=== PATIENT | female | born 1940 | race Caucasian/White ===

== ENCOUNTER → 2018-01-30 11:37 | Outpatient (CLI) | payer MEDICARE, SELFPAY ==
--- NOTE | 2018-01-30 | DI.MG.S_ITS ---
BILATERAL DIGITAL SCREENING MAMMOGRAM 3D/2D WITH CAD: 01/30/2018 Comparison is made to exams dated: 05/27/2011 mammogram, 04/24/2010 mammogram, and 04/13/2009 mammogram - [facility]. There are scattered fibroglandular elements in both breasts. Current study was also evaluated with a Computer Aided Detection (CAD) system. No significant masses, calcifications, or other findings are seen in either breast. There has been no significant interval change. IMPRESSION: NEGATIVE There is no mammographic evidence of malignancy. A 1 year screening mammogram is recommended. This exam was interpreted at Station ID: [id number]. NOTE: For mammograms, a report in lay terms will be sent to the patient. Approximately 15% of breast malignancies will not be visualized mammographically. In the management of a palpable breast mass, a negative mammogram must not discourage biopsy of a clinically suspicious lesion. Electronically Signed By: Aissatou read/abdullahi:02/01/2018 08:12:20 letter sent: Normal Exam ACR BI-RADS Category 1: Negative 3341F
== END ==
PROVIDERS: PCP Internal Medicine; Visit Provider Physician Assistant Medical
DX: Z12.31 Encounter for screening mammogram for malignant neoplasm of breast (principal)
CPT/HCPCS: 77063; 77067

== ENCOUNTER → 2019-02-02 12:11 | Outpatient (CLI) | payer MEDICARE, SELFPAY ==
--- NOTE | 2019-02-02 | DI.MG.S_ITS ---
BILATERAL DIGITAL SCREENING MAMMOGRAM 3D/2D WITH CAD: 02/02/2019 CLINICAL: Routine screening. Comparison is made to exams dated: 01/30/2018 mammogram - [facility], 05/27/2011 mammogram, and 04/24/2010 mammogram - [facility]. There are scattered fibroglandular elements in both breasts. Current study was also evaluated with a Computer Aided Detection (CAD) system. No significant masses, calcifications, or other findings are seen in either breast. There has been no significant interval change. IMPRESSION: NEGATIVE There is no mammographic evidence of malignancy. A 1 year screening mammogram is recommended. This exam was interpreted at Station ID: [id number]. NOTE: For mammograms, a report in lay terms will be sent to the patient. Approximately 15% of breast malignancies will not be visualized mammographically. In the management of a palpable breast mass, a negative mammogram must not discourage biopsy of a clinically suspicious lesion. Electronically Signed By: Joao chaves/abdullahi:02/04/2019 07:23:47 letter sent: Normal Exam ACR BI-RADS Category 1: Negative 3341F
== END ==
PROVIDERS: PCP Physician Assistant; Visit Provider Physician Assistant
DX: Z12.31 Encounter for screening mammogram for malignant neoplasm of breast (principal)
CPT/HCPCS: 77063; 77067

== ENCOUNTER → 2019-04-17 10:16 | Outpatient (CLI) | payer MEDICARE, OTHER, SELFPAY | PROVIDERS: PCP Student in an Organized Health Care Education/Training Program; Visit Provider Physician Assistant | DX: M85.852 Other specified disorders of bone density and structure, left thigh (principal); Z78.0 Asymptomatic menopausal state; Z90.722 Acquired absence of ovaries, bilateral; E28.39 Other primary ovarian failure | CPT/HCPCS: 77080 ==

== ENCOUNTER → 2019-04-19 11:30 | Outpatient (CLI) | payer MEDICARE, OTHER, SELFPAY ==
--- NOTE | 2019-04-19 11:33 | DI.RAD.S_ITS ---
PROCEDURE: XR CERVICAL SPINE 2V OR 3V INDICATIONS: Neck pain TECHNIQUE: 3 view(s) of the cervical spine were acquired. COMPARISON: None. FINDINGS: Bones: No fractures or dislocations to the T1 level. The lateral masses of C1 appear intact on the odontoid view. There is asymmetric left-sided facet arthropathy in the upper cervical spine. Moderate degenerative disc height loss uncal vertebral joint hypertrophy at C5-6 level where trace retrolisthesis is present. Grade 1 anterolisthesis C4 on 5 with only mild disc height loss. Moderate disc height loss at C67. No suspicious bony lesions. Soft tissues: No prevertebral soft tissue swelling. IMPRESSION: Multilevel degenerative disc, endplates, and facet joint changes. This combination may cause radiculopathy secondary to bony foraminal narrowing, particularly at the C5-6 level. Consider MRI. Dictated by: Emy Ferris M.D. on 04/19/2019 at 15:35 Approved by: Emy Ferris M.D. on 04/19/2019 at 15:37
--- NOTE | 2019-04-19 11:33 | DI.RAD.S_ITS ---
PROCEDURE: XR LUMBAR SPINE MIN 4V INDICATIONS: Low back pain; radiculopathy left leg TECHNIQUE: 5 views of the lumbar spine were acquired. COMPARISON: None. FINDINGS: Bones: 5 nonrib-bearing vertebrae are present. Slight thoracolumbar scoliosis with the leftward apex at the L1 level and a rightward apex at L4. Trace retrolisthesis of L1 on 2. There are severe degenerative endplate and disc changes with severe disc height loss at L2-3, L3-4 and asymmetric disc height loss at L4-5.. No vertebral body compression fractures. No suspicious bony lesions. Facet hypertrophy is present at L4-5 and L5-S1. Soft tissues: Overlying bowel gas pattern is normal. No suspicious soft tissue calcifications. Atherosclerotic calcification of the abdominal aorta. Oblique images: No pars defects. IMPRESSION: 1. Minor thoracolumbar reverse S. scoliosis. 2. Multilevel severe disc and endplate degeneration, particularly in the mid lumbar spine. 3. Facet hypertrophy in the lower lumbar spine. Dictated by: Emy Ferris M.D. on 04/19/2019 at 15:32 Approved by: Emy Ferris M.D. on 04/19/2019 at 15:35
== END ==
PROVIDERS: PCP Student in an Organized Health Care Education/Training Program; Visit Provider Physician Assistant
DX: M54.5 Low back pain (principal); M51.16 Intervertebral disc disorders with radiculopathy, lumbar region; M50.322 Other cervical disc degeneration at C5-C6 level; M47.812 Spondylosis without myelopathy or radiculopathy, cervical region; R29.898 Other symptoms and signs involving the musculoskeletal system; I70.0 Atherosclerosis of aorta
CPT/HCPCS: 72040; 72110

== ENCOUNTER → 2019-04-29 12:35 | Outpatient (CLI) | payer MEDICARE, OTHER, SELFPAY ==
--- NOTE | 2019-04-29 12:37 | DI.MRI.S_ITS ---
PROCEDURE: MR LUMBAR SPINE WO CON INDICATIONS: Weakness of left leg w/neck LBP TECHNIQUE: Noncontrast sagittal T1 spin echo and T2 fast echo, sagittal STIR, axial T1 and T2 fast spin echo through the lumbar spine. In cases with scoliosis, additional coronal T2 fast spin echo may be performed. COMPARISON: [facility], CR, XR LUMBAR SPINE MIN 4V, 04/19/2019, 11:29. FINDINGS: Image quality: Excellent. Alignment and Curvature: There is normal bony alignment. Mild convex right curvature of the lumbar spine. Bone Marrow: Reactive endplate change is noted adjacent to the L1-L2, L2-L3, L3-L4, L4-L5 and L5-S1 discs. Benign, intraosseous hemangiomas noted in the L4 vertebral body. No acute vertebral body compression fractures. Spinal Cord: Conus medullaris terminates at the L1-2 disc level. Visualized cord demonstrates normal signal and size. Paraspinous Soft Tissues: No paravertebral masses. L1-L2: Loss of disc signal and slight loss of disc height. Moderate, diffuse disc bulge. Mild narrowing of the central canal. No neural foraminal narrowing. No neural compression. L2-L3: Loss of disc signal and mild loss of disc height. Moderate, diffuse disc bulge. Mild to moderate narrowing of the central canal. Mild bilateral facet hypertrophy. Moderate bilateral neural foraminal narrowing. No neural compression. L3-L4: Loss of disc signal and height. Moderate, diffuse disc bulge. [id number] bilateral facet hypertrophy. Moderate narrowing of the central canal. Moderate right and vcgojrvb-gt-ggjfvh left neural foraminal narrowing with slight compression of the exiting left L3 nerve root. L4-L5: Loss of disc signal and height. Mild, diffuse disc bulge. Mild right and moderate left facet hypertrophy. No central stenosis. Mild right and moderate left neural foraminal narrowing. No neural compression. L5-S1: Loss of disc signal. Mild diffuse disc bulge. Mild bilateral facet hypertrophy. No central stenosis. Moderate to severe left neural foraminal narrowing with slight compression of the exiting left L5 nerve root. IMPRESSION: 1. Multilevel degenerative disc disease. 2. Multilevel facet arthropathy. 3. Moderate L3-L4 central canal narrowing. Mild to moderate L2-L3 central canal narrowing. Mild L1-L2 central canal narrowing. 4. Moderate right and vsmzcdow-fj-ldwwrn left L3-L4 neural foraminal narrowing. Moderate to severe left L5-S1 neural foraminal narrowing. Moderate bilateral L2-L3 neural foraminal narrowing. Mild right and moderate left L4-L5 neural foraminal narrowing. 5. Slight compression of the exiting left L3 nerve root and the exiting left L5 nerve root secondary to neural foraminal narrowing. Dictated by: Caro Rodríguez MD, PhD on 04/29/2019 at 16:19 Approved by: Caro Rodríguez MD, PhD on 04/29/2019 at 16:25
--- NOTE | 2019-04-29 12:37 | DI.MRI.S_ITS ---
PROCEDURE: MR CERVICAL SPINE WO CON INDICATIONS: Weakness of left leg w/neck LBP TECHNIQUE: Noncontrast sagittal T1 spin echo and T2 fast spin echo, sagittal STIR, foraminal oblique sagittal T2 fast spin echo, and axial gradient echo or T2 fast spin echo through the cervical spine. COMPARISON: [facility], CR, XR CERVICAL SPINE 2V OR 3V, 04/19/2019, 11:29. [facility], MR, C-SPINE WITHOUT CONTRAST, 04/20/2015, 14:13. FINDINGS: Image quality: Degraded by patient motion artifact. Alignment and Curvature: There is normal bony alignment. There is straightening of normal cervical spine curvature. Bone Marrow: Mild reactive endplate changes noted adjacent to the C4-C5, C5-C6 and C6-C7 discs. Spinal Cord: Visualized spinal cord has normal size and signal. No cerebellar tonsillar herniation. Paraspinous Soft Tissues: No paravertebral masses. Prevertebral soft tissues are normal in thickness. C2-C3: Loss of disc signal. No central stenosis. Mild bilateral facet hypertrophy. Mild left neural foraminal narrowing. No neural compression C3-C4: Loss of disc signal. No central stenosis. Mild right and moderate left facet hypertrophy. Moderate left uncovertebral joint hypertrophy. Severe left neural foraminal narrowing and compression of the exiting left C4 nerve root. C4-C5: Loss of disc signal and slight loss of disc height. No central stenosis. Mild, diffuse disc bulge. Mild right and severe left facet hypertrophy. Mild right and moderate left uncovertebral joint hypertrophy. Mild right and severe left neural foraminal narrowing with compression of the exiting left C5 nerve root. C5-C6: Loss of disc signal and height. Moderate, diffuse disc bulge. Moderate to severe narrowing of the central canal. Moderate bilateral facet hypertrophy. Moderate bilateral uncovertebral joint hypertrophy. Severe bilateral neural foraminal narrowing with compression of the exiting C6 nerve roots. C6-C7: Loss of disc signal and mild loss of disc height. Mild, diffuse disc bulge. Mild narrowing of the central canal. Mild bilateral facet hypertrophy. Moderate bilateral uncovertebral joint hypertrophy. Severe bilateral neural foraminal narrowing with compression of the exiting C7 nerve roots. C7-T1: Loss of disc signal. No central stenosis. No neural foraminal narrowing. No neural compression. IMPRESSION: 1. Multilevel degenerative disc disease. 2. Multilevel facet and uncovertebral arthropathy. 3. Moderate to severe C5-C6 central canal narrowing. Mild C6-C7 central canal narrowing. 4. Severe bilateral C5-C6 and C6-C7 neural foraminal narrowing. Mild right and severe left C4-C5 neuroforaminal narrowing. Severe left C3-C4 neural foraminal narrowing. 5. Compression of the exiting left C4 nerve root, exiting left C5 nerve root, exiting bilateral C6 nerve roots and exiting bilateral C7 nerve roots secondary to neural foraminal narrowing. 6. Image quality degraded by patient motion artifact. Dictated by: Caro Rodríguez MD, PhD on 04/29/2019 at 15:48 Approved by: Caro Rodríguez MD, PhD on 04/29/2019 at 16:05
== END ==
PROVIDERS: PCP Student in an Organized Health Care Education/Training Program; Referring Provider Physician Assistant; Visit Provider Physician Assistant
DX: M54.5 Low back pain (principal); M50.321 Other cervical disc degeneration at C4-C5 level; M47.812 Spondylosis without myelopathy or radiculopathy, cervical region; M48.02 Spinal stenosis, cervical region; M51.36 Other intervertebral disc degeneration, lumbar region; M51.37 Other intervertebral disc degeneration, lumbosacral region; M47.816 Spondylosis without myelopathy or radiculopathy, lumbar region; M47.817 Spondylosis without myelopathy or radiculopathy, lumbosacral region; R29.898 Other symptoms and signs involving the musculoskeletal system; G62.9 Polyneuropathy, unspecified
CPT/HCPCS: 72141; 72148

== ENCOUNTER → 2020-01-17 15:04 | Outpatient (CLI) | payer MEDICARE, OTHER, SELFPAY ==
[2020-01-17 15:31] LABS: Add Manual Diff / Slide Review NO; Basophils Absolute Auto 0 /uL (0-100); Basophils Percent Auto 0.5 % (0-2); Eosinophils Absolute Auto 100 /uL (0-450); Eosinophils Percent Auto 1.4 % (2-4); Hematocrit 39.5 % (36-46); Lymphocytes Absolute Auto 2300 /uL (1100-4500); Lymphocytes Percent Auto 31.2 % (25-40); Mean Corpuscular Hemoglobin 31.7 PG (26-34); Mean Corpuscular Volume 96.3 fL (80-100); Monocytes Absolute Auto 500 /uL (0-900); Monocytes Percent Auto 6.7 % (3-14); Neutrophils Absolute Auto 4500 /uL (1500-7000); Neutrophils Percent Auto 60.2 % (50-75); Platelet Count 269 X10^3/uL (150-400); Red Blood Cell Count 4.11 X10^6/uL (4.0-5.2); Red Cell Distribution Width 12.9 % (11.6-14.8); White Blood Cell Count 7.4 X10^3/uL (4.5-11.0)
[2020-01-17 15:46] LABS: Alanine Aminotransferase 25 IU/L (<35); Albumin 4.4 g/dL (3.5-5.0); Albumin Globulin Ratio 1.4 (1.0-2.8); Alkaline Phosphatase 96 U/L (38-126); Aspartate Aminotransferase 30 IU/L (14-36); BUN Creatinine Ratio 23.7 (6-22); Bilirubin Total 0.4 mg/dL (0.2-1.3); Blood Urea Nitrogen 18 mg/dL (7-17); Calcium 9.2 mg/dL (8.4-10.2); Carbon Dioxide 30 mmol/L (22-32); Chloride 104 mmol/L (98-107); Estimated Glomerular Filt Rate > 60.0 mL/min (>60); Globulin 3.1 g/dL (1.7-4.1); Glucose 93 mg/dL (80-110); HEMOLYSIS < 15 (0-50); Potassium 4.3 mmol/L (3.4-5.1); Sodium 138 mmol/L (137-145); Total Protein 7.5 g/dL (6.3-8.2)
== END ==
PROVIDERS: PCP Student in an Organized Health Care Education/Training Program; Referring Provider Registered Nurse; Visit Provider Registered Nurse
DX: R59.1 Generalized enlarged lymph nodes (principal)
CPT/HCPCS: 36415; 80053; 85025

== ENCOUNTER → 2020-02-12 12:30 | Outpatient (CLI) | payer MEDICARE, OTHER, SELFPAY ==
[2020-02-12 13:10] LABS: Cholesterol 135 mg/dL (140-199); HDL Cholesterol 35 mg/dL (40-60); LDL Cholesterol Calculated 48 mg/dL (<100); Triglycerides 259 mg/dL (35-150)
[2020-02-12 14:41] LABS: Vitamin D 25 Hydroxy (D3) 64.8 ng/mL (30.0-100.0)
== END ==
PROVIDERS: PCP Student in an Organized Health Care Education/Training Program; Referring Provider Student in an Organized Health Care Education/Training Program; Visit Provider Student in an Organized Health Care Education/Training Program
DX: E55.9 Vitamin D deficiency, unspecified (principal); E78.5 Hyperlipidemia, unspecified; M85.80 Other specified disorders of bone density and structure, unspecified site
CPT/HCPCS: 36415; 80061; 82306

== ENCOUNTER → 2020-03-21 14:01 | Outpatient (CLI) | payer MEDICARE, OTHER, SELFPAY ==
--- NOTE | 2020-03-21 14:04 | DI.MG.S_ITS ---
BILATERAL DIGITAL SCREENING MAMMOGRAM 3D/2D WITH CAD: 03/21/2020 CLINICAL: Routine screening. Comparison is made to exams dated: 02/02/2019 mammogram, 01/30/2018 mammogram - [facility], and 05/27/2011 mammogram - [facility]. There are scattered fibroglandular elements in both breasts. Current study was also evaluated with a Computer Aided Detection (CAD) system. No significant masses, calcifications, or other findings are seen in either breast. There has been no significant interval change. IMPRESSION: NEGATIVE There is no mammographic evidence of malignancy. A 1 year screening mammogram is recommended. This exam was interpreted at Station ID: [id number]. NOTE: For mammograms, a report in lay terms will be sent to the patient. Approximately 15% of breast malignancies will not be visualized mammographically. In the management of a palpable breast mass, a negative mammogram must not discourage biopsy of a clinically suspicious lesion. Electronically Signed By: Emy lindsey/abdullahi:03/23/2020 09:25:53 letter sent: Normal Exam ACR BI-RADS Category 1: Negative [id number]
== END ==
PROVIDERS: PCP Student in an Organized Health Care Education/Training Program; Referring Provider Student in an Organized Health Care Education/Training Program; Visit Provider Student in an Organized Health Care Education/Training Program
DX: Z12.31 Encounter for screening mammogram for malignant neoplasm of breast (principal)
CPT/HCPCS: 77063; 77067

== ENCOUNTER → 2020-11-11 14:35 | Outpatient (CLI) | payer MEDICARE, OTHER, SELFPAY ==
[2020-11-11 17:30] LABS: C-Reactive Protein Quant 0.6 mg/dL (<1.0); Uric Acid 3.9 mg/dL (2.5-6.2)
[2020-11-11 17:47] LABS: Rheumatoid Factor < 8.6 IU/mL (<12.0)
[2020-11-11 17:59] LABS: Erythrocyte Sedimentation Rate 32 MM/HR (0-20)
[2020-11-14 17:41] LABS: ANA Screen, IFA Positive (.)
== END ==
PROVIDERS: PCP Student in an Organized Health Care Education/Training Program; Referring Provider Orthopaedic Surgery; Visit Provider Orthopaedic Surgery
DX: M16.12 Unilateral primary osteoarthritis, left hip (principal); M25.552 Pain in left hip
CPT/HCPCS: 36415; 84550; 85651; 86038; 86140; 86430

== ENCOUNTER → 2021-02-15 12:04 | Outpatient (CLI) | payer MEDICARE, OTHER, SELFPAY ==
[2021-02-15 13:18] LABS: Add Manual Diff / Slide Review NO; Basophils Absolute Auto 0 /uL (0-100); Basophils Percent Auto 0.3 % (0-2); Eosinophils Absolute Auto 100 /uL (0-450); Eosinophils Percent Auto 1.4 % (2-4); Hematocrit 36.7 % (36-46); Hemoglobin 12.5 g/dL (12.0-16.0); Lymphocytes Absolute Auto 1800 /uL (1100-4500); Lymphocytes Percent Auto 32.1 % (25-40); Mean Corpuscular HGB Conc 34.1 % (30-36); Mean Corpuscular Hemoglobin 32.4 PG (26-34); Mean Corpuscular Volume 95.2 fL (80-100); Monocytes Absolute Auto 300 /uL (0-900); Neutrophils Absolute Auto 3400 /uL (1500-7000); Neutrophils Percent Auto 60.2 % (50-75); Platelet Count 244 X10^3/uL (150-400); Red Blood Cell Count 3.85 X10^6/uL (4.0-5.2); Red Cell Distribution Width 13.2 % (11.6-14.8); White Blood Cell Count 5.7 X10^3/uL (4.5-11.0)
[2021-02-15 14:04] LABS: BUN Creatinine Ratio 14.9 (6-22); Blood Urea Nitrogen 11 mg/dL (7-17); Calcium 9.2 mg/dL (8.4-10.2); Carbon Dioxide 28 mmol/L (22-32); Chloride 100 mmol/L (98-107); Cholesterol 241 mg/dL (140-199); Estimated Glomerular Filt Rate > 60.0 mL/min (>60); Glucose 82 mg/dL (80-110); HDL Cholesterol 49 mg/dL (40-60); HEMOLYSIS < 15 (0-50); LDL Cholesterol Calculated 162 mg/dL (<100); Potassium 4.4 mmol/L (3.4-5.1); Sodium 136 mmol/L (137-145); Triglycerides 152 mg/dL (35-150)
== END ==
PROVIDERS: PCP Student in an Organized Health Care Education/Training Program; Referring Provider Student in an Organized Health Care Education/Training Program; Visit Provider Student in an Organized Health Care Education/Training Program
DX: E78.5 Hyperlipidemia, unspecified (principal); F51.05 Insomnia due to other mental disorder; F40.9 Phobic anxiety disorder, unspecified; F41.9 Anxiety disorder, unspecified; K21.9 Gastro-esophageal reflux disease without esophagitis; G62.9 Polyneuropathy, unspecified; R29.898 Other symptoms and signs involving the musculoskeletal system
CPT/HCPCS: 36415; 80048; 80061; 85025